=== PATIENT | male | born 1950 | race Caucasian/White ===

== ENCOUNTER 2024-09-14 07:16 | Day surgery (SDC) | payer MEDICARE, SELFPAY ==
[2024-09-14] VITALS (9 sets, daily range): BP systolic 133–158; BP diastolic 60–87
[2024-09-14] MEDS: ASPIRIN 325 MG PO (07:51)
[2024-09-14 08:15] LABS: Hematocrit 40.5 % (39.0-52.0); Hemoglobin 13.9 g/dL (13.0-18.0); Mean Corp Hgb Conc. 34.3 g/dL (33.0-37.0); Mean Corpuscular Volume 85.3 fL (80.0-94.0); Platelet Count 224 10^3/uL (130-400); Red Cell Dist. Width 13.0 % (11.5-14.5)
[2024-09-14 08:19] LABS: Glucose - Point of Care 203 mg/dl (70-99)
[2024-09-14 08:22] LABS: Blood Urea Nitrogen 14 mg/dl (9-20); Calcium 9.3 mg/dl (8.4-10.2); Carbon Dioxide 25 mmol/L (22-30); Chloride 109 mmol/L (98-107); Estimated Creatinine Clearance 120 ml/min; Glucose 197 mg/dl (70-99); Potassium 4.2 mmol/L (3.5-5.1); Sodium 141 mmol/L (135-145); eGFR > 60.00
--- NOTE | 2024-09-14 09:15 | ITS.CL.CATH ---
Certified Shorthand Reporter - Catheterization
Cardiac Catheterization
Procedure Report:
LEFT HEART CATHETERIZATION
Date of Procedure: September 14, 2024
Procedures performed:
1: Coronary angiography
2: Left ventriculography
Primary Care Physician: Dr. Ayaan Albarran
Primary Claim Processor: Dr. Jesse Staples
INDICATION: The patient is a 74-year-old man with a past medical history significant for hypertension and diabetes for over 10 years who presents after reporting chest pain for about a day at the end of July. The chest discomfort resolved and he
was seen in our office for initial visit on August 16 approximately a week later. He had similar symptoms a year before. He is currently feeling well without any typical exertional angina. He underwent echocardiography on September 01 which showed
preserved EF with inferior wall motion abnormality. Nuclear perfusion imaging performed on August 31 showed intermediate risk with mostly infarct in the inferior wall.
ACCESS: The patient was prepped and draped in usual sterile fashion. A 6 Spanish sheath was placed in the right radial 124/8, 17 artery using the Seldinger over the wire technique.
HEMODYNAMIC FINDINGS (mmHg):
LV(s/d,EDP): 124/8, 18
Ao(s/d,m): 124/56, 83
ANGIOGRAPHIC FINDINGS:
Single-plane Left Ventriculography in PEDRO Projection: Severe distal inferior hypokinesis. Overall preserved LV systolic function with a visually estimated ejection fraction of 55 to 60%. No significant mitral regurgitation.
Coronary Angiography:
Dominance: Right
Left Main: Normal
Left Anterior Descending: The left anterior descending artery is a medium to large caliber vessel that gives rise to 3 major diagonal branches. The first diagonal branch is medium caliber and widely patent. The second diagonal branch has a 90%
true ostial stenosis with normal distal flow and a small to medium caliber vessel. The third obtuse marginal branch is widely patent and medium caliber. The LAD itself is normal proximally up to the takeoff of the second diagonal branch. Beyond
that there is diffuse moderate luminal irregularities with at worst a 60 to 70% stenosis just before the third diagonal branch.
Left Circumflex: The left circumflex is a medium caliber nondominant system. The mid circumflex has a smooth 40% stenosis at the takeoff of a small first obtuse marginal branch. This is followed by more moderate to severe 60 to 70% disease
involving the bifurcation of a large OM 2 and smaller OM 3. OM 2 has a mid 80% stenosis and gives rise to 2 large distal branches with normal flow. The distal OM 3 has severe small vessel disease with normal flow.
Right Coronary: The right coronary artery is a medium caliber dominant vessel that gives rise to a very small caliber posterior descending artery and a medium caliber posterior left ventricular branch. The proximal right has diffuse 30% disease.
The remainder of the AV groove has only mild luminal irregularities. There is a preocclusive 95% proximal PDA subtotal occlusion with faint antegrade flow and evidence of left to right competitive filling of 2 small caliber branches. The PLV
branch has an unusual tortuous takeoff from the bifurcation with a smooth 60 to 70% ostial/proximal stenosis. The distal PLV branch has normal flow but appears to be a good surgical target.
Fluoroscopy Time (min): 2.4
Radiation Dose (mGy): 476
DAP (Gy.cm2): 31
Closure device: None. A TR band was applied for hemostasis at the right wrist.
Complications: None.
ASSESSMENT:
1: Diffuse multivessel coronary disease with clear obstructive disease in the small right PDA, right PLV, large OM 2, distal OM 3, second diagonal branch and LAD. I suspect the culprit in the patient's recent event was the PDA with the resting flow
abnormality that now fills with collaterals and appears to be mostly infarcted on nuclear imaging.
2: Preserved LV systolic function with no significant mitral gravitation and distal inferior wall motion abnormality as described above.
CONCLUSIONS and RECOMMENDATIONS:
1: CT surgical evaluation for CABG. Ideally the patient will get a POLLOCK to the LAD, SVG to OM 2, SVG to right PLV with possible jump to right PDA. I suspect the diagonal is too small to graft.
2: Continue aggressive medical therapy for coronary artery disease. Continue aspirin, Plavix, statin, and amlodipine along with medical therapy for diabetes.
Cornel Pacheco M.D.
Copy to: Dr. Ayaan Albarran
--- NOTE | 2024-09-14 09:31 | W.DS.TRANS ---
DC Summary - [employer]
-
Discharge Instructions:
Discharge Diagnosis/Procedures post cath
Diet Low Fat,Low Sodium,Diabetic, Carb Controlled
Driving Restrictions No driving for 24 hours
Bathing Restrictions None
Instructions:
Stand-Alone Forms: DC Instructions- Cath/EP Lab
Changes to Home Medications: No
Discharge Medications:
DC Medications w/original date entered in [employer]
amlodipine 5 mg tablet 5 mg PO BID 09/14/24
aspirin 81 mg tablet 81 mg PO DAILY 09/14/24
atorvastatin 40 mg tablet (Lipitor) 40 mg PO HS 09/14/24
clopidogrel 75 mg tablet (Plavix) 75 mg PO DAILY 09/14/24
krill 1,000 mg-omega-3 170 mg-dha 50 mg-epa 80 to-kofeew-difao capsule cap 09/14/24
cbxclidl-pwo-vvxuj acid 0.4 mg-lycopene 300 mcg-lutein 250 mcg tablet (Centrum Silver) 1 tab PO DAILY 09/14/24
sitagliptin phos 50 mg-metformin ER 1,000 mg tablet,extend rel 24h mp 1 tab PO BID 09/14/24
sitagliptin phosphate 50 mg-metformin 1,000 mg tablet (Janumet) 1 tab PO BID 09/14/24
Home Medication Changes
Pending Results: No
== END 2024-09-14 12:54 | disposition home or self-care (01) ==
LOC: CATH 07:16
PROVIDERS: ATTENDING PHYSICIAN Internal Medicine Interventional Cardiology; FAMILY PHYSICIAN Family Medicine; OTHER PHYSICIAN Internal Medicine
DX: I25.10 Atherosclerotic heart disease of native coronary artery without angina pectoris (principal); E11.9 Type 2 diabetes mellitus without complications; I10 Essential (primary) hypertension; Z79.02 Long term (current) use of antithrombotics/antiplatelets; Z79.82 Long term (current) use of aspirin; Z79.899 Other long term (current) drug therapy
CPT/HCPCS: 80048; 82962; 85027; 93458; C1894; Q9967

== ENCOUNTER → 2024-10-08 10:08 | Outpatient (REF) | payer OTHER, SELFPAY | LOC: RAD 10:08 | PROVIDERS: ATTENDING PHYSICIAN Thoracic Surgery (Cardiothoracic Vascular Surgery); FAMILY PHYSICIAN Family Medicine | DX: I25.10 Atherosclerotic heart disease of native coronary artery without angina pectoris (principal); Z01.810 Encounter for preprocedural cardiovascular examination | CPT/HCPCS: 71250 ==